=== PATIENT | female | born 1970 | race Hispanic/Latino ===

== ENCOUNTER 2020-06-16 13:01 | Emergency (ER) | payer SELFPAY ==
[~2020-06-16] VITALS: Ht 157.5 cm; Wt 73.2 kg
[2020-06-16] MEDS ORDERED: ASPIRIN 325 MG TAB PO STA (13:21)
[2020-06-16] MEDS ORDERED: ASPIRIN 325 MG TAB ONE (14:13)
== END 2020-06-16 14:54 | disposition home or self-care (01) ==
LOC: FSED 13:30
DX: R07.9 Chest pain, unspecified (principal); R06.02 Shortness of breath; F17.210 Nicotine dependence, cigarettes, uncomplicated
CPT/HCPCS: 71046; 80053; 82553; 84484; 85025; 93005; 99283